=== PATIENT | female | born 2000 | race Two or more races ===

== ENCOUNTER 2024-02-17 00:52 | Emergency (ER) | payer MEDICAID, OTHER ==
[~2024-02-17] VITALS: Ht 147.3 cm; Wt 88.0 kg
--- NOTE | 2024-02-17 01:14 | ED.PDOC ---
History of Present Illness HPI Comments 23-year-old female who came to ER for back pains. Patient denies any medical problems. States she woke up this morning with lower back pains, constant, nonradiating, tight, , spasms. Denies any recent trauma to the lower back. Denies any urinary symptoms. Denies any numbness or weakness of the lower extremities. Vital signs were stable on arrival. Chief Complaint: Back Pain Time Seen by MD: 01:13 Reviewed Notes: Nurses Notes Allergies: Coded Allergies: NO KNOWN ALLERGIES (Unverified , 02/17/24) Home Meds Active Scripts Acetaminophen (Acetaminophen) 500 Mg Tab, 500 MG PO Q4HP PRN, #20 TAB Prov:ANA DEE PAC 02/17/24 Ibuprofen Micronized (Ibuprofen) 800 Mg Tab, 800 MG PO Q8HP PRN, #20 TAB Prov:ANA DEE PAC 02/17/24 Information Source: Patient Mode of Arrival: Ambulatory Severity: Moderate Timing: Hours Duration: Since onset Prehospital treatment: None Past Medical History PAST MEDICAL HISTORY: Denies Surgical History: Denies all surgeries PRISM MEASURER History: Denies all PRISM MEASURER Hx Family History Family History: Reviewed,noncontributory to illness Social History Smoker: Non-Smoker Alcohol: Denies ETOH Use Drugs: Denies Drug Use Lives In: Home Constitutional: denies: chills, diaphoresis, fatigue, fever, malaise, sweats, weakness, others EENTM: denies: blurred vision, double vision, ear bleeding, ear discharge, ear drainage, ear pain, ear ringing, eye pain, eye redness, hearing loss, mouth pa in, mouth swelling, nasal discharge, nose bleeding, nose congestion, nose pain, photophobia, tearing, throat pain, throat swelling, voice changes, others Respiratory: denies: cough, hemoptysis, orthopnea, SOB at rest, shortness of breath, SOB with excertion, stridor, wheezing, others Cardiovascular: denies: chest pain, dizzy spells, diaphoresis, Dyspnea on exertion, edema, irregular heart beat, left arm pain, lightheadedness, palpitations, PND, syncope, others Gastrointestinal: denies: abdomen distended, abdominal pain, blood streaked bowels, constipated, diarrhea, dysphagia, difficulty swallowing, hematemesis, melena, nausea, poor appetite, poor fluid intake, rectal bleeding, rectal pain, vomiting, others Genitourinary: denies: abnormal vagina bleeding, burning, dyspareunia, dysuria, flank pain, frequency, hematuria, incontinence, pain, , vagina discharge, urgency, others Neurological: denies: dizziness, fainting, headache, left sided numbness, left sided weakness, numbness, paresthesia, pre-existing deficit, right sided numbness, right sided weakness, seizure, speech problems, tingling, tremors, weakness, others Musculoskeletal: reports: back pain; denies: gout, joint pain, joint swelling, muscle pain, muscle stiffness, neck pain, others Integumetry: denies: bruises, change in color, change in hair/nails, dryness, laceration, lesions, lumps, rash, wounds, others Allergic/Immunocompromised: denies: Difficulty Healing, Frequent Infections, Hives, Itching, others Hematologic/Lymphatic: denies: anemia, blood clots, easy bleeding, easy bruisi ng, swollen glands, others Endocrine: denies: excessive hunger, excessive sweating, excessive thirst, exce ssive urination, flushing, intolerance to cold, intolerance to heat, unexplained weight gain, unexplained weight loss, others Psychiatric: denies: anxiety, bipolar disorder, depression, hopeless, panic disorder, schizophrenia, sleepless, suicidal, others Physical Exam General Appearance: Moderate Distress (Due to lower back pain concerns.), Obese HEENT: Normal ENT Inspection, Pharynx Normal, TMs Normal Neck: Full Range of Motion, Non-Tender, Normal, Normal Inspection Respiratory: Chest Non-Tender, Lungs Clear, No Accessory Muscle Use, No Respiratory Distress, Normal Breath Sounds Cardiovascular: No Edema, No JVD, No Murmur, No Gallop, Normal Peripheral Pulses, Regular Rate/Rhythm Breast Exam: Deferred Gastrointestinal: No Organomegaly, Non Tender, No Pulsatile Mass, Normal Bowel Sounds, Soft Genitalia: Deferred Pelvic: Deferred Rectal: Deferred Extremities: No calf tenderness, Normal capillary refill, Normal inspection, Normal range of motion, Non-tender, No pedal edema Musculoskeletal : Location: Bilateral Extremity Location: Back (Diffuse bilateral lower thoracic tenderness to palpation throughout. No signs of trauma. No step-offs. Patient denies any saddle paresthesia. Bilateral distal neurovascularly intact.) Apperance: Normal Neurologic: Alert, bar tender II-XII nml as Tested, No Motor Deficits, Normal Affect, Normal Mood, No Sensory Deficits Cerebellar Function: Normal Reflexes: Normal Skin: Dry, Normal Color, Warm Lymphatic: No Adenopathy Was a procedure done? Was a procedure done?: No Differential Dx Considerations may include: Urinary tract infection, musculoskeletal pain X-Ray, Labs, Meds, VS Vital Signs Date Time Temp Pulse Resp B/P (MAP) Pulse Ox O2 Delivery O2 Flow Rate FiO2 02/17/24 01:45 98.3 69 17 119/58 (78) 100 98.3 02/17/24 01:45 69 18 100 Room Air 02/17/24 01:00 98.9 88 16 136/72 (93) 100 Lab Test 02/17/24 02:30 Range/Units Urine Color Light-yellow Yellow Urine Clarity Clear Clear Urine pH 5.5 5.0-9.0 Urine Specific [place] 1.018 1.001-1.035 Urine Protein Negative Negative Urine Ketones Negative Negative Urine Blood Trace H Negative /uL Urine Nitrite Negative Negative Urine Bilirubin Negative Negative Urine Urobilinogen Normal Negative mg/dL Urine Leukocyte Esterase Negative Negative /uL Urine RBC 1 0 - 4 /hpf Urine WBC 1 0 - 5 /hpf Urine Squamous Epithelial Cells Few <5 /hpf Urine Bacteria None seen None Seen /hpf Urine Glucose Normal Normal mg/dL Current Medications Medications (Trade) Dose Ordered Sig/Cata Route Start Time Stop Time Status Last Admin Ketorolac Tromethamine (Toradol Injection) 30 mg ONCE ONCE IM 02/17/24 01:15 02/17/24 01:16 DC 02/17/24 01:42 Acetaminophen/ Hydrocodone Bitart ([place] 5/325MG Tab) 1 tab ONCE ONCE PO 02/17/24 01:15 02/17/24 01:16 DC 02/17/24 01:42 X-Ray, Labs, Meds, VS Comment All studies performed the ED were evaluated by me personally. X-ray thoracic spine was unremarkable for any acute fracture or dislocation. Radiology co ncurred with my assessment. Urine results were unremarkable for any acute process. Patient appears to be suffering from lower back spasms. Time of 1ST Reevaluation: 03:16 Reevaluation 1ST: Improved Consultation: PCP Patient Education/Counseling: Diagnosis, Treatment Family Education/Counseling: Diagnosis, Treatment, No Family Present Departure 1 Departure Time of Disposition: 03:16 Impression: Primary Impression: Low back strain Disposition: 30 STILL A PATIENT Condition: Stable Additional Instructions: Advised patient utilize medication as needed for symptomatic relief as well as ice therapy. e-Prescriptions Acetaminophen (Acetaminophen) 500 Mg Tab 500 MG PO Q4HP PRN, #20 TAB Prov: ANA DEE PAC 02/17/24 Ibuprofen Micronized (Ibuprofen) 800 Mg Tab 800 MG PO Q8HP PRN, #20 TAB Prov: ANA DEE PAC 02/17/24 Discharged With: Self, Friend Critical Care Note Critical Care Time?: No Stability Stability form required: No Heart Score Heart Score: Heart Score Response (Comments) Value History N/A 0 EKG N/A 0 Age N/A 0 Risk Factors N/A 0 Troponin N/A 0 Total 0 I personally scribed for ANA DEE PAC ([email or web address]) on 02/17/24 at 01:13. Electronically submitted by Ricardo Lewis ([email or web address]). ANA DEE PAC Feb 17, 2024 01:13
[2024-02-17] MEDS: KETOROLAC TROMETH 60MG/2ML VIAL IM ONE (01:42)
[2024-02-17] MEDS: HYDROcodone-ACET 5/325MG TAB PO ONE (01:42)
[2024-02-17 01:45] VITALS: BP 119/58; PULSE 69; RESP 18; TEMP 98.3; O2SAT 100
--- NOTE | 2024-02-17 01:48 | DVH ---
CLINICAL INDICATION: Back pain TECHNIQUE: 3 radiographic views of the thoracic spine were obtained. Comparison: None FINDINGS/IMPRESSION: There is no evidence of acute fracture or dislocation. The visualized joint space is well maintained. The alignment is anatomical. There is no radiopaque foreign body.
[2024-02-17] MEDS ORDERED: ACET500T58 PO (02:27)
[2024-02-17] MEDS ORDERED: IBUP-1455 PO (02:27)
[2024-02-17 02:30] LABS: Urine Bacteria None Seen /hpf (None Seen)
[2024-02-17 03:04] LABS: Urine Blood TRACE /uL (Negative); Urine Clarity Clear (Clear); Urine Color Light-Yellow (Yellow); Urine Protein, UAD Negative (Negative); Urine Specific Gravity 1.018 (1.001-1.035); Urine Urobilinogen Normal (Negative); Urine WBC 1 /hpf (0 - 5); Urine pH 5.5 (5.0-9.0)
== END 2024-02-17 03:03 | disposition home or self-care (01) ==
LOC: ER 00:52
DX: S39.012A Strain of muscle, fascia and tendon of lower back, initial encounter (principal); Z79.899 Other long term (current) drug therapy; X58.XXXA Exposure to other specified factors, initial encounter; Y93.89 Activity, other specified; Y92.89 Other specified places as the place of occurrence of the external cause; Y99.8 Other external cause status
CPT/HCPCS: 72070; 81001; 96372; 99284; J1885

== ENCOUNTER 2024-05-13 23:34 | Emergency (ER) | payer MEDICAID ==
[~2024-05-13] VITALS: Ht 147.3 cm; Wt 89.9 kg
[~2024-05-13 23:34] MED LIST: ACET500T58 PO; IBUP-1455 PO
[2024-05-13 23:42] VITALS: BP 141/87; PULSE 85; RESP 16; O2SAT 97
--- NOTE | 2024-05-13 23:58 | ED.PDOC ---
History of Present Illness HPI Comments possible tampon in vagina. she had placed a tampon 2 days ago, but tried to pull it out tonight, but only got "tissue" Chief Complaint: Foreign Body Time Seen by MD: 23:48 Reviewed Notes: Nurses Notes, Medications, Allergies Allergies: Coded Allergies: NO KNOWN ALLERGIES (Unverified , 02/17/24) Home Meds Active Scripts Acetaminophen (Acetaminophen) 500 Mg Tab, 500 MG PO Q4HP PRN, #20 TAB Prov:LUIZANA MARTINEZ PAC 02/17/24 Ibuprofen Micronized (Ibuprofen) 800 Mg Tab, 800 MG PO Q8HP PRN, #20 TAB Prov:ANA DEE David PAC 02/17/24 Information Source: Patient Mode of Arrival: Ambulatory Severity: None Timing: Days Duration: Since onset Past Medical History PAST MEDICAL HISTORY: Denies Surgical History: Denies all surgeries HAND SOLE SEWER History: Denies all HAND SOLE SEWER Hx Family History Family History: Reviewed,noncontributory to illness Social History Smoker: Non-Smoker Alcohol: Denies ETOH Use Drugs: Denies Drug Use Lives In: Home Constitutional: denies: chills, diaphoresis, fatigue, fever, malaise, sweats, weakness, others EENTM: denies: blurred vision, double vision, ear bleeding, ear discharge, ear drainage, ear pain, ear ringing, eye pain, eye redness, hearing loss, mouth pain, mouth swelling, nasal discharge, nose bleeding, nose congestion, nose pain, photophobia, tearing, throat pain, throat swelling, voice changes, others Respiratory: denies: cough, hemoptysis, orthopnea, SOB at rest, shortness of breath, SOB with excertion, stridor, wheezing, others Cardiovascular: denies: chest pain, dizzy spells, diaphoresis, Dyspnea on exertion, edema, irregular heart beat, left arm pain, lightheadedness, palpitations, PND, syncope, others Gastrointestinal: denies: abdomen distended, abdominal pain, blood streaked bowels, constipated, diarrhea, dysphagia, difficulty swallowing, hematemesis, melena, nausea, poor appetite, poor fluid intake, rectal bleeding, rectal pain, vomiting, others Genitourinary: reports: others (possible vaginal FB); denies: abnormal vagina bleeding, burning, dyspareunia, dysuria, flank pain, frequency, hematuria, incontinence, pain, , vagina discharge, urgency Neurological: denies: dizziness, fainting, headache, left sided numbness, left sided weakness, numbness, paresthesia, pre-existing deficit, right sided numbness, right sided weakness, seizure, speech problems, tingling, tremors, weakness, others Musculoskeletal: denies: back pain, gout, joint pain, joint swelling, muscle pain, muscle stiffness, neck pain, others Integumetry: denies: bruises, change in color, change in hair/nails, dryness, laceration, lesions, lumps, rash, wounds, others Allergic/Immunocompromised: denies: Difficulty Healing, Frequent Infections, Hives, Itching, others Hematologic/Lymphatic: denies: anemia, blood clots, easy bleeding, easy bruising, swollen glands, others Endocrine: denies: excessive hunger, excessive sweating, excessive thirst, excessive urination, flushing, intolerance to cold, intolerance to heat, unexplained weight gain, unexplained weight loss, others Psychiatric: denies: anxiety, bipolar disorder, depression, hopeless, panic disorder, schizophrenia, sleepless, suicidal, others All Other Systems: Reviewed and Negative Physical Exam General Appearance: No Apparent Distress, Normal HEENT: Normal ENT Inspection, Pharynx Normal, TMs Normal Neck: Full Range of Motion, Non-Tender, Normal, Normal Inspection Respiratory: Chest Non-Tender, Lungs Clear, No Accessory Muscle Use, No Respiratory Distress, Normal Breath Sounds Cardiovascular: No Edema, No JVD, No Murmur, No Gallop, Normal Peripheral Pulses, Regular Rate/Rhythm Breast Exam: Deferred Gastrointestinal: No Organomegaly, Non Tender, No Pulsatile Mass, Normal Bowel Sounds, Soft Genitalia: Deferred Pelvic: Other (with RN chaparon present, a vaginal exam with a speculum was performed, without finding any FB) Rectal: Deferred Extremities: No calf tenderness, Normal capillary refill, Normal inspection, Normal range of motion, Non-tender, No pedal edema Musculoskeletal : Apperance: Normal Neurologic: Alert, field cane scaler II-XII nml as Tested, No Motor Deficits, Normal Affect, Normal Mood, No Sensory Deficits Cerebellar Function: Normal Reflexes: Normal Skin: Dry, Normal Color, Warm Lymphatic: No Adenopathy Was a procedure done? Was a procedure done?: Yes Sedation Sedation?: No Informed consent obtained: Yes Other Procedure Procedure speculum pelvic exam for possible FB- no FB seen Differential Dx Considerations may include: retained vaginal FB, vaginitis, vaginal prolapse, uterine prolapse, bladder prolapse Time of 1ST Reevaluation: 23:57 Reevaluation 1ST: Improved Patient Education/Counseling: Diagnosis, Treatment, Prognosis, Need For Follow Up Family Education/Counseling: No Family Present Departure 1 Departure Time of Disposition: 23:57 Impression: Primary Impression: Feared condition not demonstrated Disposition: 01 HOME / SELF CARE / HOMELESS Condition: Good Discharged With: Self Critical Care Note Critical Care Time?: No Stability Stability form required: NICKO Vernon MD May 13, 2024 23:57
[2024-05-15] MEDS ORDERED: NITR-87 PO (01:56)
== END 2024-05-14 00:59 | disposition home or self-care (01) ==
LOC: ER 23:34
DX: Z71.1 Person with feared health complaint in whom no diagnosis is made (principal)

== ENCOUNTER 2024-05-14 23:44 | Emergency (ER) | payer MEDICAID ==
[~2024-05-14] VITALS: Ht 147.3 cm; Wt 86.3 kg
[2024-05-14 23:53] VITALS: BP 118/70; PULSE 84; RESP 18; O2SAT 99
--- NOTE | 2024-05-15 01:07 | ED.PDOC ---
Foreign Body HPI Comments 23-year-old female presents to ER for foreign body removal. Patient reports that she has had a tampon stuck for four days and presents to ER today for foreign body removal. States that she was seen and evaluated in ER here on 05/14/23 and states that she had a pelvic examination done at that time but reports that no foreign body was seen and was discharged home. Patient states that she could "feel the tampon" foreign body present today while she was taking a bath and presents to ER ambulatory on arrival with steady gait, in no distress with vitals stable. Denies fever, body aches, chills, abdominal/pelvic pain, vaginal discharge, skin changes, changes in urination or any further symptoms/complaints Chief Complaint: Foreign Body Time Seen by MD: 00:04 Primary Care Provider: [facility] History of Present Illness: Nurses Notes, Medications, Allergies Allergies: Coded Allergies: NO KNOWN ALLERGIES (Unverified , 02/17/24) Home Meds Active Scripts Nitrofurantoin Monohydrate Mac (Macrobid) 100 Mg Cap, 100 MG PO BID for 5 Days, #10 CAP 0 Refills Prov:NAREN WRIGHT 05/15/24 Acetaminophen (Acetaminophen) 500 Mg Tab, 500 MG PO Q4HP PRN, #20 TAB Prov:ANA DEE PAC 02/17/24 Ibuprofen Micronized (Ibuprofen) 800 Mg Tab, 800 MG PO Q8HP PRN, #20 TAB Prov:ANA DEE PAC 02/17/24 Information Source: Patient Mode of Arrival: Ambulatory Past Medical History PAST MEDICAL HISTORY: Denies Surgical History: Denies all surgeries CLOTH CUTTER History: Denies all CLOTH CUTTER Hx Family History Family History: Unknown Social History Smoker: Non-Smoker Alcohol: Denies ETOH Use Drugs: Denies Drug Use Lives In: Home Constitutional: denies: chills, diaphoresis, fatigue, fever, malaise, sweats, weakness, others EENTM: denies: blurred vision, double vision, ear bleeding, ear discharge, ear drainage, ear pain, ear ringing, eye pain, eye redness, hearing loss, mouth pain, mouth swelling, nasal discharge, nose bleeding, nose congestion, nose pain, photophobia, tearing, throat pain, throat swelling, voice changes, others Respiratory: denies: cough, hemoptysis, orthopnea, SOB at rest, shortness of breath, SOB with excertion, stridor, wheezing, others Cardiovascular: denies: chest pain, dizzy spells, diaphoresis, Dyspnea on exertion, edema, irregular heart beat, left arm pain, lightheadedness, palpitations, PND, syncope, others Gastrointestinal: denies: abdomen distended, abdominal pain, blood streaked bowels, constipated, diarrhea, dysphagia, difficulty swallowing, hematemesis, melena, nausea, poor appetite, poor fluid intake, rectal bleeding, rectal pain, vomiting, others Genitourinary: reports: others ( STATED IN HPI) Neurological: denies: dizziness, fainting, headache, left sided numbness, left sided weakness, numbness, paresthesia, pre-existing deficit, right sided numbness, right sided weakness, seizure, speech problems, tingling, tremors, weakness, others Musculoskeletal: denies: back pain, gout, joint pain, joint swelling, muscle pain, muscle stiffness, neck pain, others Integumetry: denies: bruises, change in color, change in hair/nails, dryness, laceration, lesions, lumps, rash, wounds, others Allergic/Immunocompromised: denies: Difficulty Healing, Frequent Infections, Hives, Itching, others Hematologic/Lymphatic: denies: anemia, blood clots, easy bleeding, easy bruising, swollen glands, others Endocrine: denies: excessive hunger, excessive sweating, excessive thirst, excessive urination, flushing, intolerance to cold, intolerance to heat, unexplained weight gain, unexplained weight loss, others Psychiatric: denies: anxiety, bipolar disorder, depression, hopeless, panic disorder, schizophrenia, sleepless, suicidal, others Physical Exam General Appearance: No Apparent Distress HEENT: PERRL/EOMI Neck: Full Range of Motion, Non-Tender, Normal Respiratory: Chest Non-Tender, Lungs Clear, No Accessory Muscle Use, No Respiratory Distress, Normal Breath Sounds Cardiovascular: No Murmur, No Gallop, Regular Rate/Rhythm Breast Exam: Deferred Gastrointestinal: Non Tender, No Pulsatile Mass, Soft Genitalia: Deferred Pelvic: Other (RN certified nuclear medicine technologist present, no FB noted, small cyst noted in vaginal canal. No vaginal discharge noted) Rectal: Deferred Extremities: Normal capillary refill, Normal range of motion Neurologic: Alert, No Motor Deficits, Normal Affect, Normal Mood, No Sensory Deficits Cerebellar Function: Normal Reflexes: Normal Skin: Dry, Normal Color, Warm Peripheral Pulses: 2+ Radial (R), 2+ Radial (L), 2+ Brachial (R), 2+ Brachial (L) Lymphatic: No Adenopathy Was a procedure done? Was a procedure done?: Yes Sedation Sedation?: No Pelvic Exam UTO Consent yes Notes No foreign body appreciated FB Differential Dx Differential Diagnosis: Other (Toxic shock syndrome, vaginitis, mass, PID) X-Ray, Labs, Meds, VS Vital Signs Date Time Temp Pulse Resp B/P (MAP) Pulse Ox O2 Delivery O2 Flow Rate FiO2 05/14/24 23:53 98.1 84 18 118/70 (86) 99 Lab Test 05/15/24 01:00 Range/Units Urine Color Light-yellow Yellow Urine Clarity Clear Clear Urine pH 5.5 5.0-9.0 Urine Specific [place] 1.029 1.001-1.035 Urine Protein Negative Negative Urine Ketones Negative Negative Urine Blood 3+ H Negative /uL Urine Nitrite Negative Negative Urine Bilirubin Negative Negative Urine Urobilinogen Normal Negative mg/dL Urine Leukocyte Esterase Trace Negative /uL Urine RBC 128 0 - 4 /hpf Urine Microscopic WBC 7 H 0-5 /HPF Urine Squamous Epithelial Cells Few <5 /hpf Urine Bacteria None seen None Seen /hpf Urine Glucose Normal Normal mg/dL PATIENT: CHACHO RENEEAEACCT: [id number]: [id number] : 2000 LOC: ER ROOM / BED: / AGE / SEX: 23 / F ADM STATUS: REG ER SERVICE [id number] ORDERING PHYSICIAN: NAREN WRIGHT PROCEDURE(s): PELUS - PELVIC REASON: r/o tampon foreign body ORDER NUMBER(s): [id number], ACCESSION NUMBER(s): [id number] Examination: PELUS - TA-TV CLINICAL INDICATION: r/o tampon foreign body COMPARISON: None. TECHNIQUE: Transabdominal and transvaginal ultrasound of the vaginal canal was performed. FINDINGS: No foreign body seen in the vaginal canal. Complex cystic structure of approximate size 1.19 x 1.39 x 1.4 cm with internal debris seen in the proximal vaginal canal. No free fluid is seen. IMPRESSION: 1. No foreign body seen in the vaginal canal. 2. Complex cystic structure with internal debris seen in the proximal vaginal canal. Advised further evaluation with MRI pelvis without contrast. Electronically Signed 05/15/2024 02:59 Chucho Wright ATED BY: JERROD BOSTON MD DICTATED DATE/TIME: 05/15/24258 SIGNED BY: JERROD BOSTON MD SIGNED DATE/TIME: 05/15/24258 CC: Urinalysis reviewed-urine leukocyte esterase trace, urine nitrites negative, urine blood 3+ Previous ER chart reviewed Patient had improvement in symptoms and in no distress prior to discharge Advised to drink plenty of fluids Pelvic ultrasound report reviewed and discussed with patient in full details. Patient also provided copy of pelvic ultrasound report Advised to follow up with PCP and gynecology in 1-2 days Patient verbalized understanding and agreeable with current plan of care Advised to return to ER immediately if symptoms worsen Images Reviewed?: Images reviewed and evaluated by me Time of 1ST Reevaluation: 01:00 Reevaluation 1ST: N/A Patient Education/Counseling: Diagnosis, Treatment, Prognosis, Need For Follow Up Family Education/Counseling: No Family Present Departure 1 Departure Time of Disposition: 01:42 Impression: Primary Impression: Retained tampon not found on examination Additional Impressions: UTI (urinary tract infection) Qualified Codes: N30.01 - Acute cystitis with hematuria Vaginal wall cyst Disposition: 01 HOME / SELF CARE / HOMELESS Condition: Stable e-Prescriptions Nitrofurantoin Monohydrate Mac (Macrobid) 100 Mg Cap 100 MG PO BID for 5 Days, #10 CAP 0 Refills Prov: NAREN WRIGHT 05/15/24 Discharged With: Self Critical Care Note Critical Care Time?: No Stability Stability form required: No Heart Score Heart Score: Heart Score Response (Comments) Value History N/A 0 EKG N/A 0 Age N/A 0 Risk Factors N/A 0 Troponin N/A 0 Total 0 NAREN WRIGHT May 15, 2024 01:07
[2024-05-15 01:08] LABS: Urine Bacteria None Seen /hpf (None Seen)
[2024-05-15 01:27] LABS: Urine Blood 3+ /uL (Negative); Urine Clarity Clear (Clear); Urine Color Light-Yellow (Yellow); Urine Protein, UAD Negative (Negative); Urine Specific Gravity 1.029 (1.001-1.035); Urine Squamous Epithelial Cell FEW /hpf (<5); Urine Urobilinogen Normal (Negative); Urine WBC 7 /HPF (0-5); Urine pH 5.5 (5.0-9.0)
[2024-05-15] MEDS ORDERED: NITR-87 PO (01:56)
--- NOTE | 2024-05-15 02:59 | DVH ---
Examination: PELUS - TA-TV CLINICAL INDICATION: r/o tampon foreign body COMPARISON: None. TECHNIQUE: Transabdominal and transvaginal ultrasound of the vaginal canal was performed. FINDINGS: No foreign body seen in the vaginal canal. Complex cystic structure of approximate size 1.19 x 1.39 x 1.4 cm with internal debris seen in the pr oximal vaginal canal. No free fluid is seen. IMPRESSION: 1. No foreign body seen in the vaginal canal. 2. Complex cystic structure with internal debris seen in the proximal vaginal canal. Advised furthe r evaluation with MRI pelvis without contrast. Electronically Signed 05/15/2024 02:59 Chucho Wright
== END 2024-05-15 03:21 | disposition home or self-care (01) ==
LOC: ER 23:44
DX: S30.854A Superficial foreign body of vagina and vulva, initial encounter (principal); N30.01 Acute cystitis with hematuria; X58.XXXA Exposure to other specified factors, initial encounter; Y93.89 Activity, other specified; Y92.89 Other specified places as the place of occurrence of the external cause; Y99.8 Other external cause status; Z79.899 Other long term (current) drug therapy
CPT/HCPCS: 76830; 76856; 81001